=== PATIENT | female | born 1990 | race African-American/Black ===

== ENCOUNTER 2017-09-22 14:25 | Inpatient (IN) | payer MEDICAID ==
[~2017-09-22] VITALS: Ht 167.6 cm; Wt 76.7 kg
[2017-09-22 15:18] LABS: BASOPHILS % (AUTO) 0.9 % (0.0-2.0); EOSINOPHILS % (AUTO) 0.7 % (0.0-3.0); HEMOGLOBIN 13.8 G/DL (12.0-16.0); LYMPHOCYTES % (AUTO) 28.4 % (20.0-45.0); MEAN CORPUSCULAR VOLUME 91 FL (80-99); MONOCYTES % (AUTO) 4.1 % (1.0-10.0); PLATELET COUNT 172 K/UL (150-450); RED BLOOD COUNT 4.63 M/UL (4.20-5.40); RED CELL DISTRIBUTION WIDTH 11.4 % (11.6-14.8); WHITE BLOOD COUNT 10.3 K/UL (4.8-10.8)
--- NOTE | 2017-09-22 15:50 | Diagnostic Imaging Report ---
EXAM: XR Chest, 1 View CLINICAL HISTORY: SYNCOPE TECHNIQUE: Frontal view of the chest. COMPARISON: No relevant prior studies available. FINDINGS: Lungs: Unremarkable. The lungs appear clear. No confluent pulmonary opacities. Pleural space: Unremarkable. No pneumothorax. Heart: Unremarkable. No cardiomegaly. Mediastinum: Unremarkable. Bones/joints: Unremarkable. Tubes, lines and devices: EKG patches overlie the thorax. IMPRESSION: No acute findings.
[2017-09-22 16:00] VITALS: BP 98/68
[2017-09-22 16:04] LABS: ANION GAP 13 mmol/L (5-15); BLOOD UREA NITROGEN 11 mg/dL (7-18); CALCIUM 8.7 MG/DL (8.5-10.1); CARBON DIOXIDE 23 MMOL/L (21-32); CHLORIDE 106 MMOL/L (98-107); CREATININE 1.3 MG/DL (0.55-1.30); POTASSIUM 3.3 MMOL/L (3.5-5.1); SODIUM 142 MMOL/L (136-145)
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
[2017-09-22 16:18] LABS: ALANINE AMINOTRANSFERASE 19 U/L (12-78); ALBUMIN 3.4 G/DL (3.4-5.0); ALBUMIN/GLOBULIN RATIO 0.9 (1.0-2.7); ALKALINE PHOSPHATASE 61 U/L (46-116); ASPARTATE AMINO TRANSFERASE 16 U/L (15-37); BILIRUBIN,TOTAL 0.4 MG/DL (0.2-1.0); CKMB 0.6 NG/ML (0.0-3.6); CREATINE KINASE 181 U/L (26-308)
[2017-09-22 16:24] LABS: APPEARANCE,URINE SLIGHTLY CLOUDY; BILIRUBIN, URINE NEGATIVE (NEGATIVE); GLUCOSE, URINE (UA) NEGATIVE (NEGATIVE); KETONES,URINE 1+ (NEGATIVE); LEUKOCYTE ESTERASE ,URINE 1+ (NEGATIVE); NITRITE,URINE NEGATIVE (NEGATIVE); PH,URINE 5 (4.5-8.0); PROTEIN,URINE 3+ (NEGATIVE); UROBILINOGEN,URINE 1 MG/DL (0.0-1.0)
[2017-09-22 16:28] LABS: COLOR,URINE YELLOW
[2017-09-22] MEDS ORDERED: Isovue-370 150ml vial INJ PRN (16:30)
[2017-09-22] MEDS ORDERED: NKM (17:31)
--- NOTE | 2017-09-22 17:47 | Diagnostic Imaging Report ---
EXAM: CT Angiography Chest With Intravenous Contrast CLINICAL HISTORY: Shortness of breath TECHNIQUE: Axial computed tomographic angiography images of the chest with intravenous contrast using pulmonary embolism protocol. CTDI is 104 mGy and DLP is 878 mGy-cm. One or more of the following dose reduction techniques were used: automated exposure control, adjustment of the mA and/or kV according to patient size, use of iterative reconstruction technique. MIP reconstructed images were created and reviewed. Coronal and sagittal reformatted images were created and reviewed. COMPARISON: No relevant prior studies available. FINDINGS: Pulmonary arteries: There are multiple occlusive pulmonary emboli seen bilaterally, involving branches of all pulmonary lobes. Aorta: No thoracic aortic aneurysm. Lungs: 2 mm granuloma in the right upper lobe (series 7 image 26). The lungs otherwise appear clear. No mass. Pleural space: Unremarkable. No significant effusion. No pneumothorax. Heart: Unremarkable. No cardiomegaly. No significant pericardial effusion. No evidence of RV dysfunction. Bones/joints: No acute fracture. No dislocation. Soft tissues: Unremarkable. Lymph nodes: Unremarkable. No enlarged lymph nodes. IMPRESSION: There are multiple occlusive pulmonary emboli seen bilaterally, most likely acute, involving branches of all pulmonary lobes. . [employer] 09/22/17 17:48 Call Doctor Regarding Pulmonary Embolism, called Ayana RUBY on 09/22 17:48 (-07:00)
[2017-09-22 18:00] VITALS: BP 105/80
[2017-09-22] MEDS ORDERED: Heparin 5000 units/ml inj IV ONE (18:00)
[2017-09-22] MEDS ORDERED: Heparin 25,000u/D5W 500ml 500 ML IV SCH (18:00)
[2017-09-22 19:10] VITALS: BP 114/78
[2017-09-22 20:00] VITALS: BP 125/82
[2017-09-22] MEDS ORDERED: Zolpidem 5mg tab ORAL PRN (21:15)
[2017-09-23] VITALS: BP 122/75
[2017-09-23 04:00] VITALS: BP 124/77
[2017-09-23 08:00] VITALS: BP 132/76
[2017-09-23] MEDS: Heparin 25,000u/D5W 500ml 500 ML IV SCH (09:45)
--- NOTE | 2017-09-23 10:27 | History & Physical ---
History and Physical History & Physicial HP dictated # [id number] Jordy Malone MD Sep 23, 2017 10:27
--- NOTE | 2017-09-23 11:15 | History and Physical Report ---
DATE OF ADMISSION: 09/22/2017 CHIEF COMPLAINT: The patient had a presyncopal episode. HISTORY OF PRESENT ILLNESS: This is a 26-year-old female, she was in her usual state of health until yesterday when she was crossing the street to go to have her hair done and then she stated that she was going to pass out. She went down on the ground and then somebody called paramedics. The patient was brought into the emergency room. The patient had a CT of the chest with IV contrast showing multiple pulmonary emboli bilaterally. The patient was admitted with diagnosis of pulmonary embolism. PAST MEDICAL HISTORY: No previous history of DVTs. No history of smoking or taking contraceptives. MEDICATIONS: None. ALLERGIES: No known drug allergies. SOCIAL HISTORY: No history of smoking. As mentioned, no history of alcohol abuse. The patient is , has no kid. REVIEW OF SYSTEMS: As above. PHYSICAL EXAMINATION: GENERAL: The patient is a pleasant female, in no acute distress. VITAL SIGNS: Blood pressure is 132/76, pulse 80, temperature 97.7, and respiratory rate is 20. HEENT: [place] conjunctivae. Anicteric sclerae. NECK: Supple. LUNGS: Clear to auscultation. HEART: S1, S2 without murmurs or rubs. ABDOMEN: Soft and nontender. EXTREMITIES: No cyanosis or edema. LABORATORY FINDINGS: The CBC shows a WBC of 10,300, hematocrit 42, hemoglobin 13.8, and platelets 172,000. The chemistry panel shows a sodium of 142, potassium 3.3, chloride 106, glucose is 136, BUN is 11, and creatinine 1.3. ASSESSMENT: This is a 26-year-old female, who is admitted with pulmonary embolism. So far, no risk factors found. PLAN: The patient was started on IV heparin. She will be started on Coumadin. I will check lower extremity venous Doppler ultrasound to source of clot. The patient will be on oxygen via nasal cannula. Jordy Malone M.D. DR: MARJORIE JOB#: [id number] CC:
[2017-09-23 12:00] VITALS: BP 135/83
[2017-09-23 16:00] VITALS: BP 116/78
[2017-09-23 20:00] VITALS: BP 122/77
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
[2017-09-24] VITALS: BP 148/69
[2017-09-24 04:00] VITALS: BP 128/80
[2017-09-24 04:58] LABS: ANION GAP 10 mmol/L (5-15); BLOOD UREA NITROGEN 9 mg/dL (7-18); CALCIUM 8.2 MG/DL (8.5-10.1); CARBON DIOXIDE 24 MMOL/L (21-32); CHLORIDE 107 MMOL/L (98-107); POTASSIUM 3.6 MMOL/L (3.5-5.1); SODIUM 141 MMOL/L (136-145)
[2017-09-24] MEDS: Heparin 25,000u/D5W 500ml 500 ML IV SCH ×2 (05:46→22:55)
[2017-09-24 08:00] VITALS: BP 136/89
--- NOTE | 2017-09-24 08:40 | Pulmonology Progress Note ---
Assessment/Plan Problems: (1) Pulmonary embolus (2) Elevated troponin (3) Chest pain Assessment/Plan ASSESSMENT -B PE, ? provoked -Dehydration -MJ use -Elevated cardiac biomarkers PLAN: -[facility] -Tele -F/U trops until they downtrend -TTE -Duplex -Limited hypercoag w/u sent Robin Woody MD Subjective Allergies: Coded Allergies: PENICILLINS (Verified Allergy, Severe, 09/22/17) Patient states getting a severe swelling in throat when taking penicillins AMOXICILLIN (Verified Allergy, Mild, 09/22/17) Patient states getting a mild swelling in throat when taking amoxicillin Subjective AFVSS, stable on RA Doing US now Endorses 4 hours of immobility on sunday night while taking down kyle Some chest tightness, no CP, no SOB, no wheezing, no F/C Objective Last 24 Hour Vital Signs Date Time Temp Pulse Resp B/P (MAP) Pulse Ox O2 Delivery O2 Flow Rate FiO2 09/24/17 04:00 97.9 59 18 128/80 (96) 100 97.9 09/24/17 04:00 Nasal Cannula 1.0 09/24/17 03:59 65 09/24/17 00:00 Nasal Cannula 1.0 09/24/17 00:00 98.1 73 18 148/69 (95) 98 98.1 09/23/17 23:34 72 09/23/17 20:00 Nasal Cannula 1.0 09/23/17 20:00 97.5 63 17 122/77 (92) 99 97.5 09/23/17 19:40 90 09/23/17 16:00 70 09/23/17 16:00 98.1 77 17 116/78 (91) 99 98.1 09/23/17 16:00 Nasal Cannula 1.0 09/23/17 12:00 Nasal Cannula 2.0 09/23/17 12:00 98.1 59 18 135/83 (100) 100 98.1 09/23/17 12:00 72 Intake and Output 09/23/17 09/24/17 19:00 07:00 Intake Total 1376.132 ml 254.813 ml Output Total 1000 ml Balance 376.132 ml 254.813 ml Intake Oral 1020 ml IV Total 356.132 ml 254.813 ml Output Urine Total 1000 ml # Voids 3 General Appearance: WD/WN, no acute distress HEENT: normocephalic, atraumatic, anicteric, mucous membranes moist Respiratory/Chest: chest wall non-tender, lungs clear, normal breath sounds, no respiratory distress, no accessory muscle use Cardiovascular: normal peripheral pulses, normal rate, regular rhythm Abdomen: normal bowel sounds, soft, non tender, no organomegaly, non distended , no mass Extremities: no cyanosis, no clubbing, no edema Laboratory Tests 09/23/17 21:20: Arterial Blood pH 7.400, Arterial Blood Partial Pressure CO2 32.7L, Arterial Blood Partial Pressure O2 97.0, Arterial Blood HCO3 20.1L, Arterial Blood Oxygen Saturation 97.0, Arterial Blood Base Excess -3.7, Kenan Test Positive 09/24/17 04:00: Activated Partial Thromboplast Time 69H, Sodium Level 141, Potassium Level 3.6, Chloride Level 107, Carbon Dioxide Level 24, Anion Gap 10, Blood Urea Nitrogen 9 , Creatinine 1.0, Estimat Glomerular Filtration Rate > 60, Glucose Level 92, Calcium Level 8.2L Current Medications Medications (Trade) Dose Ordered Sig/Td Route PRN Reason Start Time Stop Time Status Last Admin Dose Admin Heparin Sodium/ Dextrose 500 ml @ 27.597 mls/ hr adjust per protocol IV 09/23/17 09:45 10/23/17 09:44 09/24/17 05:46 Iopamidol (Isovue-370 150ml) 150 ml NOW PRN INJ Radiology Procedure 09/22/17 16:30 09/24/17 16:17 Zolpidem Tartrate (Ambien) 5 mg HSPRN PRN ORAL Insomnia 09/22/17 21:15 09/29/17 21:14 Robin Woody MD Sep 24, 2017 08:40
[2017-09-24 12:00] VITALS: BP 139/89
--- NOTE | 2017-09-24 12:49 | General Progress Note ---
Assessment/Plan Problem List: (1) Pulmonary embolus ICD Codes: I26.99 - Other pulmonary embolism without acute cor pulmonale SNOMED: 82561526 Qualifiers: Qualified Codes: I26.99 - Other pulmonary embolism without acute cor pulmonale (2) Chest pain ICD Codes: R07.9 - Chest pain, unspecified SNOMED: 69771914 Assessment/Plan anticoagulation Discussed with dr Woody Subjective Allergies: Coded Allergies: PENICILLINS (Verified Allergy, Severe, 09/22/17) Patient states getting a severe swelling in throat when taking penicillins AMOXICILLIN (Verified Allergy, Mild, 09/22/17) Patient states getting a mild swelling in throat when taking amoxicillin Subjective feels ok Objective Last 24 Hour Vital Signs Date Time Temp Pulse Resp B/P (MAP) Pulse Ox O2 Delivery O2 Flow Rate FiO2 09/24/17 12:00 96.5 78 18 139/89 (106) 100 96.5 09/24/17 12:00 Nasal Cannula 1.0 09/24/17 10:12 58 09/24/17 08:00 Nasal Cannula 1.0 09/24/17 08:00 97.5 85 18 136/89 (105) 100 97.5 09/24/17 08:00 58 09/24/17 04:00 97.9 59 18 128/80 (96) 100 97.9 09/24/17 04:00 Nasal Cannula 1.0 09/24/17 03:59 65 09/24/17 00:00 Nasal Cannula 1.0 09/24/17 00:00 98.1 73 18 148/69 (95) 98 98.1 09/23/17 23:34 72 09/23/17 20:00 Nasal Cannula 1.0 09/23/17 20:00 97.5 63 17 122/77 (92) 99 97.5 09/23/17 19:40 90 09/23/17 16:00 70 09/23/17 16:00 98.1 77 17 116/78 (91) 99 98.1 09/23/17 16:00 Nasal Cannula 1.0 Intake and Output 09/23/17 09/24/17 19:00 07:00 Intake Total 1376.132 ml 282.410 ml Output Total 1000 ml Balance 376.132 ml 282.410 ml Intake Oral 1020 ml IV Total 356.132 ml 282.410 ml Output Urine Total 1000 ml # Voids 3 Laboratory Tests 09/23/17 21:20: Arterial Blood pH 7.400, Arterial Blood Partial Pressure CO2 32.7L, Arterial Blood Partial Pressure O2 97.0, Arterial Blood HCO3 20.1L, Arterial Blood Oxygen Saturation 97.0, Arterial Blood Base Excess -3.7, Kenan Test Positive 09/24/17 04:00: Activated Partial Thromboplast Time 69H, Sodium Level 141, Potassium Level 3.6, Chloride Level 107, Carbon Dioxide Level 24, Anion Gap 10, Blood Urea Nitrogen 9 , Creatinine 1.0, Estimat Glomerular Filtration Rate > 60, Glucose Level 92, Calcium Level 8.2L, Troponin I 0.565H Height (Feet): 5 Height (Inches): 6.00 Weight (Pounds): 169 Cardiovascular: normal rate Respiratory/Chest: lungs clear Edema: no edema noted Generalized Jordy Malone MD Sep 24, 2017 12:49
[2017-09-24 16:00] VITALS: BP 131/82
[2017-09-24] MEDS ORDERED: LORazepam 0.5mg tab ORAL PRN (16:15)
[2017-09-24 20:00] VITALS: BP 122/71
[2017-09-25] VITALS: BP 115/72
[2017-09-25 04:00] VITALS: BP 128/74
[2017-09-25] MEDS ORDERED: Heparin 5000 units/ml inj IV SCH (06:00)
[2017-09-25] MEDS ORDERED: Heparin 25,000u/D5W 500ml 500 ML IV SCH (06:00)
[2017-09-25 08:00] VITALS: BP 132/88
[2017-09-25 12:00] VITALS: BP 125/76
[2017-09-25] MEDS ORDERED: Xarelto 15mg tab ORAL SCH (12:00)
[2017-09-25] MEDS ORDERED: XARELTO10 MG ORAL (12:02)
--- NOTE | 2017-09-25 12:09 | General Progress Note ---
Assessment/Plan Problem List: (1) Pulmonary embolus ICD Codes: I26.99 - Other pulmonary embolism without acute cor pulmonale SNOMED: 09564218 Qualifiers: Qualified Codes: I26.99 - Other pulmonary embolism without acute cor pulmonale (2) Chest pain ICD Codes: R07.9 - Chest pain, unspecified SNOMED: [id number] Assessment/Plan start Xarelto Dc today Subjective Allergies: Coded Allergies: PENICILLINS (Verified Allergy, Severe, 09/22/17) Patient states getting a severe swelling in throat when taking penicillins AMOXICILLIN (Verified Allergy, Mild, 09/22/17) Patient states getting a mild swelling in throat when taking amoxicillin Subjective feels ok Objective Last 24 Hour Vital Signs Date Time Temp Pulse Resp B/P (MAP) Pulse Ox O2 Delivery O2 Flow Rate FiO2 09/25/17 12:00 Nasal Cannula 1.0 09/25/17 08:00 Nasal Cannula 1.0 09/25/17 08:00 97.5 75 18 132/88 (103) 100 97.5 09/25/17 08:00 63 09/25/17 04:00 98.6 66 16 128/74 (92) 99 98.6 66 09/25/17 04:00 65 09/25/17 04:00 Nasal Cannula 1.0 09/25/17 00:00 61 09/25/17 00:00 99.1 52 20 115/72 (86) 100 99.1 52 09/25/17 00:00 Nasal Cannula 1.0 09/24/17 20:00 Nasal Cannula 1.0 09/24/17 20:00 97.0 78 16 122/71 (88) 98 97.0 94 09/24/17 19:26 65 09/24/17 16:00 52 09/24/17 16:00 95.9 94 20 131/82 (98) 100 95.9 94 09/24/17 16:00 Nasal Cannula 1.0 Intake and Output 09/24/17 09/25/17 19:00 07:00 Intake Total 275.970 ml 268.558 ml Output Total 350 ml Balance -74.030 ml 268.558 ml IV Total 275.970 ml 268.558 ml Output Urine Total 350 ml # Voids 3 4 # Bowel Movements 2 Laboratory Tests 09/25/17 03:45: Activated Partial Thromboplast Time 56H Height (Feet): 5 Height (Inches): 6.00 Weight (Pounds): 169 Jordy Malone MD Sep 25, 2017 12:09
--- NOTE | 2017-09-27 10:32 | Discharge Summary ---
Discharge Summary Discharge Summary _ DATE OF ADMISSION: 09/22/2017 DATE OF DISCHARGE: 09/25/2017 18 REASON FOR ADMISSION: 26 years old female without past medical history presented to emergency department due to near syncopal episode. Episode occurred at the grocery store and was witnessed. Patient admitted to marijuana use earlier that day. She denied other street drug use. Per paramedics, patient was hypotensive in the field and was provided with IV hydration. Blood pressure responded to intravenous hydration. Patient reported some chest pain prior to emergency department arrival. In emergency department she denied any cardiac history, no chest pain or shortness of breath. Vital signs were revealed blood pressure 117/71, mild tachycardia. Urine test was negative; urinalysis without evidence of UTI . Troponin with mild elevation -0.062 ECG revealed sinus tachycardia, no acute ischemic changes, no evidence of RV strain.. Potassium 3.3. No leukocytosis ,stable hemoglobin and hematocrit . Urine toxicology screen positive for marijuana. CT of the chest revealed multiply occlusive pulmonary emboli, bilaterally, likely acute involving branches of all pulmonary lower lobes. Patient provided with a heparin bolus and started on heparin drip. Patient was admitted to [facility] with diagnoses of bilateral pulmonary emboli , elevated troponin, dehydration. [facility]: Patient admitted to telemetry floor. Patient started on anticoagulation. Venous duplex bilateral lower extremity revealed acute DVT left lower extremity popliteal, posterior tibial and peroneal tibial veins. Echocardiogram revealed preserved ejection fraction of 55% and right ventricular systolic pressure of 54 , consistent with moderate pulmonary hypertension. Troponin were trending , initially with transient trend up and then trending down. No chest pain. Pain management was addressed. Renal parameters and electrolytes were closely monitored . Potassium replaced. Nephrotoxins were avoided. Limited hypercoagulability workup was initiated. [employer] closely followed. Supplemental oxygen titrated and provided to keep pulse oximetry above 92%. ABG was stable. Patient started on Xarelto.. Patient was stable for discharge home on Xarelto with close follow up with primary care provider. FINAL DIAGNOSES: Bilateral pulmonary emboli Acute DVT left lower extremity Elevated cardiac biomarker/troponin Dehydration Marijuana user DISCHARGE MEDICATIONS: See Medication Reconciliation list. DISCHARGE INSTRUCTIONS: Patient discharged home. Follow up with primary care provider within one week. Patient was counseled to comply with medication regimen. Patient was counseled on return to ED precautions and bleeding precautions. I have been assigned to dictate discharge summary for this account. I was not involved in the patient's management. Lyndsey King NP Sep 27, 2017 10:32
--- NOTE | 2017-09-28 00:57 | Cardiology Report ---
APPROVED REPORT EKG Measurement Heart [id number] Sinus tachycardia Possible Left atrial enlargement Nonspecific ST and T wave abnormality Abnormal ECG
[2017-10-16] MEDS ORDERED: Xarelto 10mg tab ORAL SCH (09:00)
== END 2017-09-25 13:26 | disposition home or self-care (01) | DRG 134 ==
LOC: EDBD 14:25 → EMR 14:56 → 2W 16:40 → EDBEDREQ 17:38 → EDBEDREQSVC 17:53 → EDBEDREQ 17:53
DX: I26.99 Other pulmonary embolism without acute cor pulmonale (principal); I27.20 Pulmonary hypertension, unspecified; E86.0 Dehydration; I82.432 Acute embolism and thrombosis of left popliteal vein; I82.442 Acute embolism and thrombosis of left tibial vein; R74.8 Abnormal levels of other serum enzymes; F12.90 Cannabis use, unspecified, uncomplicated; Z88.1 Allergy status to other antibiotic agents; Z88.0 Allergy status to penicillin
CPT/HCPCS: 36415; 36600; 71045; 71275; 80048; 80053; 80307; 80329; 81003; 81025; 82140; 82550; 82553; 82803; 83090; 84484; 85025; 85240; 85300; 85303; 85306; 85379; 85384; 85610; 85651; 85730; 86140; 93005; 93306; 93970; 99291; J2405

== ENCOUNTER 2017-09-27 08:52 | Emergency (ER) | payer MEDICAID ==
[~2017-09-27] VITALS: Ht 170.2 cm; Wt 77.1 kg
[~2017-09-27 08:52] MED LIST: NKM; XARELTO10 MG ORAL
[2017-09-27 09:12] VITALS: BP 141/85
[2017-09-27 09:22] VITALS: BP 141/86
--- NOTE | 2017-09-27 09:26 | Emergency Room Report ---
History of Present Illness General Chief Complaint: Generalized Weakness Source: Patient Present Illness HPI This patient is here with several nonspecific complaints. They amount to her being anxious over recent events. Please see prior notes but patient was dx PE September 24 following near-syncope. Multiple PE and source left DVT. Currently on Xarelto. She describes "feeling her heart beat" and "feeling weak" and "tired." She is NOT short of breath, does not have chest pain. No cough, no fever. No leg pain. She has PMD appt. in about two weeks. Allergies: Coded Allergies: PENICILLINS (Verified Allergy, Severe, 09/22/17) Patient states getting a severe swelling in throat when taking penicillins AMOXICILLIN (Verified Allergy, Mild, 09/22/17) Patient states getting a mild swelling in throat when taking amoxicillin Patient History Now: No Nursing Documentation-PMH Hx Cardiac Problems: Yes - PE Review of Systems Constitutional: Denies: fever Eye: Denies: acuity changes Respiratory: Denies: cough, shortness of breath Cardiovascular: Denies: chest pain Gastrointestinal: Denies: nausea, vomiting Skin: Denies: rash Neurological: Denies: headache All Other Systems: negative except mentioned in HPI Physical Exam Vital Signs Date Time Temp Pulse Resp B/P (MAP) Pulse Ox O2 Delivery O2 Flow Rate FiO2 09/27/17 09:05 98.5 88 16 141/85 96 Room Air 98.4 Sp02 EP Interpretation: reviewed, normal General Appearance: well appearing, no apparent distress Head: normocephalic, atraumatic ENT: hearing grossly normal, normal voice Neck: full range of motion, supple Respiratory: no respiratory distress, speaking full sentences Musculoskeletal: no calf tenderness Neurologic: alert, normal gait Psychiatric: mood/affect normal Skin: no rash Medical Decision Making Diagnostic Impression: Primary Impression: Episode of generalized weakness ER Course pt. reassured Last Vital Signs Date Time Temp Pulse Resp B/P (MAP) Pulse Ox O2 Delivery O2 Flow Rate FiO2 09/27/17 09:12 98.4 16 141/85 96 Room Air 98.4 09/27/17 09:05 88 Status: improved Disposition: HOME, SELF-CARE Condition: Stable Referrals: Jordy Malone MD (PCP) Patient Instructions: Near-Syncope, [id number] Bong Hammond M.D. Sep 27, 2017 09:26
== END 2017-09-27 09:35 | disposition home or self-care (01) ==
LOC: EMR 09:15
DX: R53.1 Weakness (principal); Z86.711 Personal history of pulmonary embolism; Z79.01 Long term (current) use of anticoagulants; Z86.718 Personal history of other venous thrombosis and embolism; Z88.0 Allergy status to penicillin; Z88.1 Allergy status to other antibiotic agents
CPT/HCPCS: 99282

== ENCOUNTER 2017-11-01 12:54 | Emergency (ER) | payer SELFPAY ==
[~2017-11-01] VITALS: Ht 170.2 cm; Wt 81.6 kg
[2017-11-01] MEDS ORDERED: XARELTO10 MG ORAL (13:10)
[2017-11-01 13:22] VITALS: BP 130/67
[2017-11-01] MEDS ORDERED: Isovue-370 150ml vial INJ PRN (13:30)
--- NOTE | 2017-11-01 14:27 | Diagnostic Imaging Report ---
Indication: Cough Comparison: None A single view chest radiograph was obtained. Findings: Cardiomediastinal appearance is within normal limits for age. The lungs are clear. Pulmonary vascularity is appropriate. The diaphragmatic contour is smooth and costophrenic angles are sharp. No pleural effusions are identified. The bones are unremarkable. Impression: No acute findings
[2017-11-01 14:29] LABS: BASOPHILS % (AUTO) 0.9 % (0.0-2.0); EOSINOPHILS % (AUTO) 0.2 % (0.0-3.0); HEMATOCRIT 43.5 % (37.0-47.0); HEMOGLOBIN 14.3 G/DL (12.0-16.0); LYMPHOCYTES % (AUTO) 17.9 % (20.0-45.0); MEAN CORPUSCULAR VOLUME 90 FL (80-99); MONOCYTES % (AUTO) 4.9 % (1.0-10.0); NEUTROPHILS % (AUTO) 76.1 % (45.0-75.0); PLATELET COUNT 231 K/UL (150-450); RED BLOOD COUNT 4.83 M/UL (4.20-5.40); RED CELL DISTRIBUTION WIDTH 11.7 % (11.6-14.8); WHITE BLOOD COUNT 8.8 K/UL (4.8-10.8)
[2017-11-01 14:36] LABS: ANION GAP 8 mmol/L (5-15); BLOOD UREA NITROGEN 7 mg/dL (7-18); CALCIUM 9.4 MG/DL (8.5-10.1); CARBON DIOXIDE 25 MMOL/L (21-32); CHLORIDE 104 MMOL/L (98-107); CREATININE 0.9 MG/DL (0.55-1.30); POTASSIUM 4.1 MMOL/L (3.5-5.1); SODIUM 137 MMOL/L (136-145)
[2017-11-01 14:38] LABS: INR 1.1 (0.9-1.1)
[2017-11-01 14:49] LABS: ALANINE AMINOTRANSFERASE 28 U/L (12-78); ALBUMIN 3.7 G/DL (3.4-5.0); ALBUMIN/GLOBULIN RATIO 0.9 (1.0-2.7); ALKALINE PHOSPHATASE 47 U/L (46-116); ASPARTATE AMINO TRANSFERASE 17 U/L (15-37); BILIRUBIN,TOTAL 0.7 MG/DL (0.2-1.0); CKMB < 0.5 NG/ML (0.0-3.6); CREATINE KINASE 119 U/L (26-308)
--- NOTE | 2017-11-01 15:05 | Emergency Room Report ---
History of Present Illness General Chief Complaint: Palpitations Source: Patient, Medical Record Present Illness HPI Patient presents emergency department today complaining of palpitations. Patient was recently diagnosed with a pulmonary embolism for which she second Xaralto. Patient had one episode palpitations came to the emergency department had a negative workup at that time however did she did not have repeat CT scan she was reassured and discharge. She had another episode of severe palpitations so sure shortness breath today and she came in for further evaluation. She denies any fever nausea vomiting diarrhea chills. Denies any leg pain leg swelling. She patient states that she is compliant with her Xaralto. Symptoms noted to be severe.No other modifying factors. No other associated signs and symptoms. No other complaints were noted. Allergies: Coded Allergies: PENICILLINS (Verified Allergy, Severe, 09/22/17) Patient states getting a severe swelling in throat when taking penicillins AMOXICILLIN (Verified Allergy, Mild, 09/22/17) Patient states getting a mild swelling in throat when taking amoxicillin Patient History Past Medical History: other - Pulmonary embolism, DVT left leg Past Surgical History: none Pertinent Family History: none Social History: Denies: smoking, alcohol use, drug use Last Menstrual Period: 10/10/17 Reviewed Nursing Documentation: PMH: Agreed; PSxH: Agreed Nursing Documentation-PMH Past Medical History: No History, Except For Hx Cardiac Problems: Yes - PE Review of Systems All Other Systems: negative except mentioned in HPI Physical Exam Vital Signs Date Time Temp Pulse Resp B/P (MAP) Pulse Ox O2 Delivery O2 Flow Rate FiO2 11/01/17 13:06 98.5 105 18 130/67 98 Room Air 98.4 Sp02 EP Interpretation: reviewed, normal General Appearance: alert, moderate distress Head: atraumatic Eyes: bilateral eye normal inspection ENT: normal ENT inspection, hearing grossly normal, normal voice Neck: normal inspection, full range of motion, supple, no bony tend Respiratory: normal inspection, lungs clear, normal breath sounds, no respiratory distress, no retraction, no wheezing Cardiovascular #1: regular rate, rhythm, no edema Gastrointestinal: normal inspection, normal bowel sounds, non tender, soft, no guarding, no hernia Genitourinary: no CVA tenderness Musculoskeletal: normal inspection, back normal, normal range of motion Neurologic: normal inspection, alert, responsive, speech normal Psychiatric: normal inspection, judgement/insight normal, mood/affect normal Skin: normal inspection, normal color, no rash Medical Decision Making Diagnostic Impression: Primary Impression: Palpitations ER Course Patient presents emergency department today complaint chest discomfort and palpitations. Differential considerations include anxiety versus pulmonary embolism.Given the severity of the patient's presentation I felt this is a highly complex patient. This patient required extensive workup. Patient's laboratory workup was not impressive. However patient will require CT scan rule out pulmonary embolism.I will sign this case out to Dr. Ivan Parmar for final disposition. Labs Test 11/01/17 13:30 11/01/17 13:49 Urine HCG, Qualitative Negative (NEGATIVE) White Blood Count 8.8 K/UL (4.8-10.8) Red Blood Count 4.83 M/UL (4.20-5.40) Hemoglobin 14.3 G/DL (12.0-16.0) Hematocrit 43.5 % (37.0-47.0) Mean Corpuscular Volume 90 FL (80-99) Mean Corpuscular Hemoglobin 29.6 PG (27.0-31.0) Mean Corpuscular Hemoglobin Concent 32.8 G/DL (32.0-36.0) Red Cell Distribution Width 11.7 % (11.6-14.8) Platelet Count 231 K/UL (150-450) Mean Platelet Volume 8.1 FL (6.5-10.1) Neutrophils (%) (Auto) 76.1 % (45.0-75.0) Lymphocytes (%) (Auto) 17.9 % (20.0-45.0) Monocytes (%) (Auto) 4.9 % (1.0-10.0) Eosinophils (%) (Auto) 0.2 % (0.0-3.0) Basophils (%) (Auto) 0.9 % (0.0-2.0) Prothrombin Time 11.3 SEC (9.30-11.50) Prothromb Time International Ratio 1.1 (0.9-1.1) Activated Partial Thromboplast Time 29 SEC (23-33) D-Dimer 0.19 mg/L FEU (0.00-0.49) Sodium Level 137 MMOL/L (136-145) Potassium Level 4.1 MMOL/L (3.5-5.1) Chloride Level 104 MMOL/L (98-107) Carbon Dioxide Level 25 MMOL/L (21-32) Anion Gap 8 mmol/L (5-15) Blood Urea Nitrogen 7 mg/dL (7-18) Creatinine 0.9 MG/DL (0.55-1.30) Estimat Glomerular Filtration Rate > 60 mL/min (>60) Glucose Level 117 MG/DL (74-106) Calcium Level 9.4 MG/DL (8.5-10.1) Total Bilirubin 0.7 MG/DL (0.2-1.0) Aspartate Amino Transf (AST/SGOT) 17 U/L (15-37) Alanine Aminotransferase (ALT/SGPT) 28 U/L (12-78) Alkaline Phosphatase 47 U/L (46-116) Total Creatine Kinase 119 U/L (26-308) Creatine Kinase MB < 0.5 NG/ML (0.0-3.6) Creatine Kinase MB Relative Index 0.4 Troponin I 0.000 ng/mL (0.000-0.056) Total Protein 7.8 G/DL (6.4-8.2) Albumin 3.7 G/DL (3.4-5.0) Globulin 4.1 g/dL Albumin/Globulin Ratio 0.9 (1.0-2.7) EKG Diagnostic Results Rate: normal Rhythm: NSR ST Segments: no acute changes Rhythm Strip Diag. Results EP Interpretation: yes Rate: 91 Rhythm: NSR, no PVC's, no ectopy Chest X-Ray Diagnostic Results Chest X-Ray Diagnostic Results : Chest X-Ray Ordered: Yes Indication: Shortness of Breath EP Interpretation: No Impression: No acute disease Last Vital Signs Date Time Temp Pulse Resp B/P (MAP) Pulse Ox O2 Delivery O2 Flow Rate FiO2 11/01/17 13:22 98.4 105 18 130/67 98 Room Air 98.4 Referrals: NOT CHOSEN IPA/,REFERRING (PCP) Joaquin Underwood MD Nov 01, 2017 15:05
--- NOTE | 2017-11-01 15:37 | Diagnostic Imaging Report ---
Indication: Chest pain Technique: Continuous helical transaxial imaging of the chest was obtained from the thoracic inlet to the upper abdomen during rapid intravenous contrast administration. Arterial phase of enhancement obtained. Coronal 2-D reformats were also obtained and maximum intensity projection images in multiple planes. Study obtained in a Siemens sensation [address] Automatic Exposure Control was utilized. Total Dose length Product (DLP): 987.[address] Dose Index Volume (CTDIvol): 24.8 mGy Comparison: None Findings: There is a linear filling defect within the right lower lobe branch of the pulmonary artery (for example images 53-55 of series 10). This is nonocclusive but likely customer retention representative of thrombus. The other pulmonary artery branches appear normal. The aorta is unremarkable. Heart is unremarkable. The lungs are clear. The visualized part of the upper abdomen is unremarkable. IMPRESSION: Mild linear filling defect in the descending branch of the right pulmonary artery indicative of a partial nonocclusive thrombus. The CT scanner at [facility] is accredited by the [employer] and the scans are performed using dose optimization techniques as appropriate to a performed exam including Automatic Exposure control.
[2017-11-01 17:11] VITALS: BP 124/70
[2017-11-01 17:12] VITALS: BP 124/70
== END 2017-11-01 17:14 | disposition home or self-care (01) ==
LOC: EMR 13:45
DX: R00.2 Palpitations (principal); Z86.711 Personal history of pulmonary embolism; Z88.0 Allergy status to penicillin; Z88.1 Allergy status to other antibiotic agents
CPT/HCPCS: 36415; 71045; 71275; 80053; 81025; 82550; 82553; 84484; 85025; 85379; 85610; 85730; 93005; 99284; Q9967